=== PATIENT | female | born 1995 | race Two or more races ===

== ENCOUNTER 2022-01-28 21:30 | Emergency (ER) | payer MEDICAID, OTHER ==
[~2022-01-28] VITALS: Ht 152.4 cm; Wt 115.0 kg
[2022-01-28] MEDS ORDERED: CEPH-510 PO (23:42)
[2022-01-28] MEDS ORDERED: ACET-1158 PO (23:42)
[2022-01-29 00:17] VITALS: BP 128/62
== END 2022-01-29 01:57 | disposition home or self-care (01) ==
LOC: ER 21:34
DX: S61.412A Laceration without foreign body of left hand, initial encounter (principal); W26.0XXA Contact with knife, initial encounter; Y93.89 Activity, other specified; Y92.89 Other specified places as the place of occurrence of the external cause; Y99.8 Other external cause status
CPT/HCPCS: 12001

== ENCOUNTER 2023-10-14 21:13 | Emergency (ER) | payer MEDICAID ==
[~2023-10-14] VITALS: Ht 154.9 cm; Wt 59.1 kg
[~2023-10-14 21:13] MED LIST: ACET500T58 PO; CEPH-510 PO
[2023-10-14 22:09] LABS: Basophils # (auto) 0 10 ^3/uL (0-0.2); Basophils % (auto) 0.1 % (0.0-2.0); Eosinophils # (auto) 0.3 10 ^3/uL (0-0.8); Eosinophils % (auto) 2.7 % (0.0-7.0); Hematocrit 39.1 % (36.0-46.0); Hemoglobin 13.7 g/dL (12.2-16.2); Lymphocytes # (auto) 0.4 10 ^3/uL (0.4-5.4); Lymphocytes % (auto) 4.2 % (10.0-50.0); Mean Corpuscular Hemoglobin 30.3 pg (28.0-32.0); Mean Corpuscular Volume 86.7 fL (80.0-100.0); Monocytes # (auto) 0.3 10 ^3/uL (0-1.3); Monocytes % (auto) 2.9 % (0.0-12.0); Neutrophils # (auto) 9.4 10 ^3/uL (1.6-8.6); Neutrophils % (auto) 90.1 % (37.0-80.0); Platelet Count (auto) 215 10^3/uL (140-450); Red Blood Cells 4.51 10^6/uL (4.0-5.20); White Blood Cell 10.5 10^3/uL (4.4-10.8)
[2023-10-14 22:24] LABS: Chloride 106 mmol/L (98-107); Potassium 3.9 mmol/L (3.5-5.1); Sodium 138 mmol/L (136-145)
[2023-10-14 22:25] LABS: Anion Gap 8 (5-15); Calcium 9.7 mg/dL (8.7-10.4); Carbon Dioxide 24 mmol/L (20-30)
[2023-10-14 22:30] LABS: BUN/Creatinine Ratio 19.3 (10.0-20.0); Blood Urea Nitrogen 11 mg/dL (9-23); Glucose 91 mg/dL (74-106)
[2023-10-14 22:36] LABS: Urine Bacteria FEW /hpf (None Seen); Urine Blood Negative /uL (Negative); Urine Clarity Clear (Clear); Urine Color Yellow (Yellow); Urine Protein, UAD 1+ (Negative); Urine Specific Gravity 1.032 (1.001-1.035); Urine Urobilinogen Normal (Negative); Urine WBC 1 /hpf (0 - 5)
[2023-10-14] MEDS: ONDANSETRON ODT 4 MG TAB PO ONE (23:45)
[2023-10-15 02:00] VITALS: BP 124/62; PULSE 90; RESP 16; TEMP 98.2; O2SAT 99
== END 2023-10-15 02:06 | disposition home or self-care (01) ==
LOC: ER 21:13
DX: O21.8 Other vomiting complicating pregnancy (principal); R10.2 Pelvic and perineal pain; D25.9 Leiomyoma of uterus, unspecified; Z3A.13 13 weeks gestation of pregnancy
CPT/HCPCS: 36415; 76801; 80048; 81001; 84702; 85025